=== PATIENT | female | born 1980 | race Caucasian/White ===

== ENCOUNTER → 2016-10-06 | Outpatient (CLI) | payer OTHER ==
[~2016-10-06] VITALS: Ht 160 cm; Wt 59.9 kg
[~2016-10-06] MED LIST: /BUSP5TA OR; ALBU17IN INH; BUPR1TAB53 PO; HYDR-2808 PO; IBUP200C10 PO; LAMI25TA PO; LIDOCAINE 2% INJ 100 MG/5 ML SDV (FOR ANES.) As Ordered ONE; LITHOBID PO; NEUR300C PO; NICO21DI4 TD; NS 1,000 ML IV ONE; OMEP20CA3 PO; PROPOFOL 500 MG/50 ML VIAL As Ordered ONE; ZOFR20TA PO; wellbutrin
--- NOTE | 2016-10-06 10:49 | ROOR ---
Patient Name: Sameer Jimenez Procedure Date: 10/06/2016 10:29 AM Date of : 1980 Age: 35 Room: [facility] Gender: Female Note Status: Finalized Procedure: Upper Endoscopy + Biopsies Indications: Nausea with vomiting Providers: Ulises Pro MD Referring MD: RADHA WEINER MD Requesting Provider: Medicines: Monitored Anesthesia Care Complications: No immediate complications. Procedure: Pre-Anesthesia Assessment: - The heart rate, respiratory rate, oxygen saturations, blood pressure, adequacy of pulmonary ventilation, and response to care were monitored throughout the procedure. The Endoscope was introduced through the mouth, and advanced to the second part of duodenum. The upper GI endoscopy was accomplished without difficulty. The patient tolerated the procedure well. Findings: The Z-line was regular and was found 35 cm from the incisors. A small hiatal hernia was present. No other significant abnormalities were identified in a careful examination of the stomach. Biopsies were taken with a cold forceps in the gastric antrum for Helicobacter pylori testing. The exam of the duodenum was otherwise normal. Impression: - Z-line regular, 35 cm from the incisors. - Small hiatal hernia. - Biopsies were taken with a cold forceps for Helicobacter pylori testing. - The examination was otherwise normal. Recommendation: - Patient has a contact number available for emergencies. The signs and symptoms of potential delayed complications were discussed with the patient. Return to normal activities tomorrow. Written discharge instructions were provided to the patient. - High fiber diet. - Discharge patient to home. - Continue present medications. - Await pathology results. - Telephone GI clinic for pathology results in 1 week. - Return to referring physician. - The findings and recommendations were discussed with the patient's family. Ulises Pro MD Ulises Pro MD 10/06/2016 10:48:50 AM This report has been signed electronically. Number of Addenda: 0 Note Initiated On: 10/06/2016 10:29 AM Estimated Blood Loss: Estimated blood loss: none.
[2016-10-06 11:11] VITALS: BP 102/66
== END | disposition home or self-care (01) ==
LOC: M OPP 10:09
PROVIDERS: ATTEND Internal Medicine Gastroenterology
DX: R11.2 Nausea with vomiting, unspecified (principal); K44.9 Diaphragmatic hernia without obstruction or gangrene; E05.90 Thyrotoxicosis, unspecified without thyrotoxic crisis or storm; K21.9 Gastro-esophageal reflux disease without esophagitis; M19.90 Unspecified osteoarthritis, unspecified site; F41.9 Anxiety disorder, unspecified; F33.9 Major depressive disorder, recurrent, unspecified; R06.83 Snoring; R32 Unspecified urinary incontinence; G43.909 Migraine, unspecified, not intractable, without status migrainosus; F17.210 Nicotine dependence, cigarettes, uncomplicated; F12.20 Cannabis dependence, uncomplicated; Z79.899 Other long term (current) drug therapy; Z91.018 Allergy to other foods

== ENCOUNTER → 2016-10-11 | Outpatient (CLI) | payer OTHER ==
[~2016-10-11] MED LIST changes: -LIDOCAINE 2% INJ 100 MG/5 ML SDV (FOR ANES.) As Ordered ONE; -NS 1,000 ML IV ONE; -PROPOFOL 500 MG/50 ML VIAL As Ordered ONE
--- NOTE | 2016-10-11 10:54 | REP ---
NUCLEAR GASTRIC EMPTYING SCAN: Following the oral administration of 1 millicurie of technetium 99m sulfur colloid in two scrambled eggs and 6 oz of water, multiple images of the upper abdomen were performed in the anterior and posterior projections. Imaging is performed for 90 minutes. At the end of 90 minutes, 17% of the ingested activity has emptied from the stomach. T-1/2 is calculated to be 286 minutes, which is greater than normal value of 90 minutes. IMPRESSION: Significantly delayed gastric emptying. Signed by Adráin Camp MD 10/11/2016 01:12 P
== END ==
LOC: M RAD 07:56
PROVIDERS: ATTEND Internal Medicine Gastroenterology
DX: R11.2 Nausea with vomiting, unspecified (principal); K30 Functional dyspepsia

== ENCOUNTER → 2018-08-29 | Outpatient (REF) | payer OTHER ==
[~2018-08-29] MED LIST changes: -IBUP200C10 PO; +IBUP200C25 PO; -ZOFR20TA PO; +ZOFR4TAB16 PO
[2018-08-31 14:10] LABS: HPV HYBRID CAPTURE II Positive (Negative)
== END ==
LOC: M SFHCWAGY 15:47
PROVIDERS: ATTEND Nurse Practitioner Family
DX: Z12.72 Encounter for screening for malignant neoplasm of vagina (principal)

== ENCOUNTER → 2018-12-22 | Outpatient (CLI) | payer OTHER ==
[~2018-12-22] MED LIST changes: -OMEP20CA3 PO; +OMEP20CA4 PO
--- NOTE | 2018-12-22 19:05 | REP ---
Pelvic ultrasound for pelvic pain: The bladder is adequately distended. The study is performed with transabdominal and Doppler ultrasound assessment. The uterus is surgically absent. Right ovary: The right ovary is normal size measuring 2.8 x 1.7 x 1.7 cm. There is no dominant right ovarian mass or cyst. There is vascular flow with the Doppler resistive index in the parenchymal arteries measuring 0.50. Left ovary: The left ovary is normal size measuring 2.7 x 1.6 x 1.5 cm. There is no left ovarian dominant mass or cyst. There is vascular flow with the Doppler resistive index of the parenchymal arteries measuring 0.54. There is no free fluid in the pelvis. Impression: The uterus is surgically absent. There are no dominant ovarian masses or cyst. There is vascular flow in both ovaries. There is no free fluid in the pelvis . Bladder ultrasound for incomplete bladder emptying: The distended urinary bladder contains 395 ml of fluid. There is mobile debris within the bladder fluid posteriorly. There is no focal or diffuse bladder wall thickening. There are no bladder wall polyps or masses. With color Doppler assessment there are bilateral ureteral jets. Postvoid residual bladder volume is 20 ml. This is equivalent to 5.0%. Electronically Signed by Adrián Arita MD 12/22/2018 06:56 P
== END ==
LOC: M RAD 16:49
PROVIDERS: ATTEND Nurse Practitioner Family
DX: R10.2 Pelvic and perineal pain (principal); R33.9 Retention of urine, unspecified

== ENCOUNTER → 2019-01-09 | Outpatient (REF) | payer OTHER ==
[2019-01-09 18:25] LABS: APPEARANCE, URINE CLEAR (CLEAR); BACTERIA, URINE AUTO NEGATIVE (NEGATIVE); BILIRUBIN, URINE AUTO NEGATIVE (NEGATIVE); BLOOD, URINE BLOOD 1+ (NEGATIVE); COLOR, URINE YELLOW (YELLOW); GLUCOSE, URINE (UA) AUTO NEGATIVE (NEGATIVE); KETONE, URINE AUTO TRACE mg/dL (NEGATIVE); LEUKOCYTE ESTERASE, URINE AUTO NEGATIVE (NEGATIVE); NITRITE, URINE AUTO NEGATIVE (NEGATIVE); PROTEIN, URINE AUTO NEGATIVE (NEGATIVE); RBC, URINE AUTO 8 /HPF (0-3); SPECIFIC GRAVITY URINE AUTO 1.023 (1.002-1.035); SQUAMOUS EPITHELIAL CELL UR AU 0 /HPF (0-6); UROBILINOGEN, URINE AUTO 0.2 mg/dL (0.0-2.0); WBC, URINE AUTO 1 /HPF (0-3)
== END ==
LOC: M SMT 17:07
PROVIDERS: ATTEND Nurse Practitioner Family
DX: N39.46 Mixed incontinence (principal)

== ENCOUNTER → 2019-01-16 | Outpatient (CLI) | payer OTHER ==
[~2019-01-16] MED LIST changes: +ISOVUE-370 76% 100ML VIAL (Q9967) As Ordered ONE
--- NOTE | 2019-01-16 10:08 | REP ---
Clinical: Microscopic hematuria. Technique: Axial precontrast, contrast enhanced, and delayed images of the abdomen and pelvis using 100 ml Isovue 370 intravenous contrast material with coronal and sagittal re-formations. Findings: Evaluation of the urinary tract system is essentially unremarkable. However, a very small 1 mm nonobstructing left intrarenal calculus (image 41) cannot definitively be excluded. Liver, spleen, pancreas, gallbladder, and bilateral adrenal glands are normal. The enteric system is without obstruction or acute inflammatory process. Pelvis demonstrates normal bladder and prior hysterectomy. No ascites. No free air. No adenopathy. Musculoskeletal structures are intact. Lung bases are clear. Impression: 1. Possible 1 mm nonobstructing left intrarenal calculus. Otherwise normal urinary tract system. Electronically Signed by Casimiro Paris MD 01/16/2019 09:59 A
== END ==
LOC: M RAD 09:10
PROVIDERS: ATTEND Nurse Practitioner Family
DX: R31.29 Other microscopic hematuria (principal)
CPT/HCPCS: 74178; Q9967

== ENCOUNTER 2019-08-24 21:14 | Emergency (ER) | payer OTHER ==
[~2019-08-24] VITALS: Ht 160 cm; Wt 58.2 kg
[~2019-08-24 21:14] MED LIST changes: -ISOVUE-370 76% 100ML VIAL (Q9967) As Ordered ONE; +OMEP1CAP73 PO; -OMEP20CA4 PO
[2019-08-24] MEDS ORDERED: NALOXONE 2MG/2ML SYRINGE (J2310 PER 1MG) IM STA (21:32)
[2019-08-24 22:15] VITALS: BP 117/60
== END 2019-08-24 22:27 | disposition home or self-care (01) ==
LOC: M ED 21:14
DX: F11.10 Opioid abuse, uncomplicated (principal); J45.909 Unspecified asthma, uncomplicated; Z79.899 Other long term (current) drug therapy; F17.210 Nicotine dependence, cigarettes, uncomplicated
CPT/HCPCS: 96372; 99284; J2310

== ENCOUNTER → 2020-04-25 | Outpatient (REF) | payer OTHER ==
[~2020-04-25] MED LIST changes: -HYDR-2808 PO; +HYDR-4429 PO
== END ==
LOC: M SFHCWAGY 16:58
PROVIDERS: ATTEND Nurse Practitioner Family
DX: Z12.72 Encounter for screening for malignant neoplasm of vagina (principal)

== ENCOUNTER → 2020-04-25 | Outpatient (CLI) | payer OTHER ==
--- NOTE | 2020-04-25 15:51 | REPMRS ---
Patient History The patient states she had a clinical breast exam in 04/2020. No known family history of cancer. No Hormone Replacement Therapy Digital Woman Screen Mammo: April 25, 2020 - Exam #: [id number] Bilateral CC and MLO view(s) were taken. Technologist: Concepcion Gamez, Technologist No prior studies available for comparison. FINDINGS: The breast tissue is heterogeneously dense. This may lower the sensitivity of mammography. The Volpara volumetric breast density category is: C. There is no evidence of dominant mass, architectural distortion, or grouped microcalcification typical of malignancy. 3-D tomosynthesis shows no additional findings. Assessment: BI-RADS/ACR category 1 mammogram. Negative Mammogram. Recommendation Routine screening mammogram of both breasts in 1 year (for women over age 40). This patient's [facility] Lifetime Breast Cancer RIsk is estimated at 12.5 %. This mammogram was interpreted with the aid of an FDA-approved computer-aided dectection system. Electronically Signed By: Zach Jenkins MD 04/25/20 [id number]
== END ==
LOC: M WHC 14:43
PROVIDERS: ATTEND Nurse Practitioner Family
DX: Z12.31 Encounter for screening mammogram for malignant neoplasm of breast (principal)

== ENCOUNTER → 2020-11-28 | Outpatient (REF) | payer OTHER | LOC: M SFHCWAGY 17:05 | PROVIDERS: ATTEND Advanced Practice Midwife | DX: R30.0 Dysuria (principal); N89.8 Other specified noninflammatory disorders of vagina ==

== ENCOUNTER → 2021-07-06 | Outpatient (CLI) | payer MEDICAID | LOC: M OUTALCOH 07:42 | PROVIDERS: ATTEND Psychiatry & Neurology Psychiatry | DX: Z03.89 Encounter for observation for other suspected diseases and conditions ruled out (principal) ==

== ENCOUNTER 2021-07-14 15:57 | Outpatient (RCR) | payer MEDICAID | END 2021-07-18 | LOC: M OUTALCOH 15:57 | PROVIDERS: ATTEND Psychiatry & Neurology Psychiatry | DX: F12.20 Cannabis dependence, uncomplicated (principal); F17.200 Nicotine dependence, unspecified, uncomplicated ==

== ENCOUNTER → 2021-12-08 | Outpatient (REF) | LOC: M PLALAB 12:41 | PROVIDERS: ATTEND Internal Medicine | DX: M51.37 Other intervertebral disc degeneration, lumbosacral region (principal) ==

== ENCOUNTER → 2023-02-02 | Outpatient (CLI) | payer MEDICAID, OTHER ==
[2023-02-02 09:42] LABS: HEMATOCRIT 41.8 % (36.0-47.0); HEMOGLOBIN 13.8 g/dl (12.0-15.5); MEAN CORPUSCULAR HEMOGLOBIN 32.4 pg (27.0-33.0); MEAN CORPUSCULAR VOLUME 98.1 fl (80.0-96.0); PLATELET COUNT, AUTOMATED 342 10^3/uL (150-450); RED BLOOD COUNT 4.26 10^6/uL (4.00-5.40); WHITE BLOOD COUNT 6.1 10^3/uL (4.0-10.0)
[2023-02-02 10:07] LABS: ALBUMIN 3.4 G/DL (3.2-5.2); ALKALINE PHOSPHATASE 48 U/L (46-116); ALT/SGPT 13 U/L (7.0-40); AST/SGOT 18 U/L (<34); BILIRUBIN,TOTAL 0.4 MG/DL (0.3-1.2); BLOOD UREA NITROGEN 10 MG/DL (9-23); CALCIUM LEVEL 9.2 MG/DL (8.5-10.1); CARBON DIOXIDE LEVEL 31 MMOL/L (20-31); CHLORIDE LEVEL 105 MMOL/L (98-107); CREATININE FOR GFR 0.82 MG/DL (0.55-1.30); GLOMERULAR FILTRATION RATE > 60.0 (>58); GLUCOSE, FASTING 102 MG/DL (60-100); POTASSIUM SERUM 4.4 MMOL/L (3.5-5.1); SODIUM LEVEL 141 MMOL/L (136-145); TOTAL PROTEIN 6.2 G/DL (5.7-8.2)
[2023-02-02 10:10] LABS: HCG, SERUM QUALITATIVE NEGATIVE (NEGATIVE)
[2023-02-02 10:34] LABS: HIV 1&2 SCREEN NEGATIVE (NEGATIVE)
[2023-02-02 10:42] LABS: HEPATITIS C VIRUS ABY INDEX 0.05 INDEX (<0.8)
[2023-02-02 11:19] LABS: CHLAMYDIA DNA AMPLIFICATION NEGATIVE (NEGATIVE); GC DNA AMPLIFICATION NEGATIVE (NEGATIVE)
== END ==
LOC: M LAB 08:11
PROVIDERS: ATTEND Family Medicine
DX: F11.20 Opioid dependence, uncomplicated (principal)

== ENCOUNTER → 2024-01-03 | Outpatient (CLI) | payer OTHER ==
[2024-01-03 13:10] LABS: HEMATOCRIT 39.8 % (36.0-47.0); HEMOGLOBIN 13.1 g/dl (12.0-15.5); MEAN CORPUSCULAR HEMOGLOBIN 31.9 pg (27.0-33.0); MEAN CORPUSCULAR HGB CONC 32.9 g/dl (32.0-36.5); MEAN CORPUSCULAR VOLUME 96.8 fl (80.0-96.0); PLATELET COUNT, AUTOMATED 259 10^3/uL (150-450); RED BLOOD COUNT 4.11 10^6/uL (4.00-5.40); WHITE BLOOD COUNT 5.2 10^3/uL (4.0-10.0)
[2024-01-03 13:40] LABS: ALBUMIN 3.7 G/DL (3.2-5.2); ALKALINE PHOSPHATASE 46 U/L (46-116); ALT/SGPT 16 U/L (7.0-40); AST/SGOT 15 U/L (<34); BILIRUBIN,TOTAL 0.4 MG/DL (0.3-1.2); BLOOD UREA NITROGEN 14 MG/DL (9-23); CALCIUM LEVEL 9.1 MG/DL (8.5-10.1); CARBON DIOXIDE LEVEL 28 MMOL/L (20-31); CHLORIDE LEVEL 108 MMOL/L (98-107); CREATININE FOR GFR 0.92 MG/DL (0.55-1.30); GLOMERULAR FILTRATION RATE > 60.0 (>58); GLUCOSE, FASTING 69 MG/DL (60-100); POTASSIUM SERUM 4.1 MMOL/L (3.5-5.1); SODIUM LEVEL 138 MMOL/L (136-145); TOTAL PROTEIN 6.5 G/DL (5.7-8.2)
[2024-01-03 13:42] LABS: HEPATITIS B SURFACE ANTIBODY NEGATIVE (POSITIVE)
[2024-01-03 13:55] LABS: HEPATITIS B SURFACE ANTIGEN NEGATIVE (NEGATIVE)
[2024-01-03 14:07] LABS: HCG, SERUM QUALITATIVE NEGATIVE (NEGATIVE); HIV 1&2 SCREEN NEGATIVE (NEGATIVE)
[2024-01-03 14:14] LABS: HEPATITIS C VIRUS ABY INDEX < 0.02 INDEX (<0.8)
[2024-01-04 12:17] LABS: Trichomonas vaginalis (AMP) NOT DETECTED (NEGATIVE)
[2024-01-04 12:41] LABS: GC DNA AMPLIFICATION NEGATIVE (NEGATIVE)
== END ==
LOC: M LAB 12:08
PROVIDERS: ATTEND Family Medicine
DX: F11.20 Opioid dependence, uncomplicated (principal)

== ENCOUNTER → 2025-01-21 | Outpatient (CLI) | payer OTHER ==
[~2025-01-21] MED LIST changes: +BUPR150T15 PO; -BUPR1TAB53 PO
[2025-01-21 14:17] LABS: PLATELET COUNT, AUTOMATED 352 10^3/uL (150-450)
[2025-01-21 14:40] LABS: ALT/SGPT 23 U/L (7.0-40); AST/SGOT 24 U/L (<34); CALCIUM LEVEL 9.1 MG/DL (8.5-10.1); CARBON DIOXIDE LEVEL 28 MMOL/L (20-31); CHLORIDE LEVEL 106 MMOL/L (98-107); CREATININE FOR GFR 0.80 MG/DL (0.55-1.30); GLOMERULAR FILTRATION RATE > 90.0 (>58); POTASSIUM SERUM 4.0 MMOL/L (3.5-5.1); SODIUM LEVEL 138 MMOL/L (136-145)
[2025-01-21 14:47] LABS: HCG, SERUM QUALITATIVE NEGATIVE (NEGATIVE)
[2025-01-21 15:13] LABS: HIV 1&2 SCREEN NEGATIVE (NEGATIVE)
[2025-01-21 15:21] LABS: HEPATITIS C VIRUS ABY INDEX < 0.02 INDEX (<0.8)
[2025-01-21 15:46] LABS: GC DNA AMPLIFICATION NEGATIVE (NEGATIVE)
== END ==
LOC: M LAB 13:22
PROVIDERS: ATTEND Family Medicine
DX: F11.20 Opioid dependence, uncomplicated (principal)

== ENCOUNTER → 2025-01-21 | Outpatient (CLI) | payer OTHER | LOC: M LAB 13:19 | PROVIDERS: ATTEND Family Medicine | DX: F11.20 Opioid dependence, uncomplicated (principal); Z53.9 Procedure and treatment not carried out, unspecified reason ==